=== PATIENT | female | born 1940 | race Asian ===

== ENCOUNTER 2018-11-11 15:51 | Emergency (ER) | payer OTHER ==
[2018-11-11 16:03] VITALS: BP 198/88; PULSE 83; TEMP 98.5; BMI 20.2
--- NOTE | 2018-11-11 16:54 | PDOC ---
History of Present Illness - General Chief Complaint: Blood Pressure Problem Stated Complaint: Blood Pressure Problem Time Seen by Provider: 11/11/18 16:04 History Source: Patient Exam Limitations: No Limitations - History of Present Illness Initial Comments: 11/11/18 16:49 Patient is a 77F with history of chronic pancreatitis, DM (on metformin), HTN here today complaining of high blood pressure and palpitations that started this afternoon while at work. Patient states that she became concerned that something was wrong so she took her own blood pressure. Denies chest pain, shortness of breath, fever, chills, nausea, vomiting. Denies leg swelling, history of pe, recent travel. Denies abdominal pain, dysuria. Patient reports feeling thirsty. Past History - Past Medical History Allergies/Adverse Reactions: Allergies Allergy/AdvReac Type Severity Reaction Status Date / Time Sulfa (Sulfonamide Allergy Rash Verified 12/23/13 08:04 Antibiotics) Home Medications: Ambulatory Orders Levothyroxine [Synthroid -] 25 mcg PO DAILY 10/07/13 metFORMIN HCL [Glucophage -] 500 mg PO BID 10/07/13 COPD: No Diabetes: Yes HTN: Yes Hypercholesterolemia: Yes Thyroid Disease: Yes (HYPO) - Suicide/Smoking/Psychosocial Hx Smoking History: Never smoked Have you smoked in the past 12 months: No Hx Alcohol Use: No Drug/Substance Use Hx: No Substance Use Type: None Review of Systems - Review of Systems Comments:: 11/11/18 16:53 GENERAL/CONSTITUTIONAL: No fever or chills. No weakness. HEAD, EYES, EARS, NOSE AND THROAT: No change in vision. No sore throat. CARDIOVASCULAR: No chest pain or shortness of breath +palpitations RESPIRATORY: No cough, wheezing, or hemoptysis. GASTROINTESTINAL: No nausea, vomiting, diarrhea or constipation. GENITOURINARY: No dysuria, frequency, or change in urination. MUSCULOSKELETAL: No joint or muscle swelling or pain. No neck or back pain. SKIN: No rash NEUROLOGIC: No headache, vertigo, loss of consciousness, or change in strength/ sensation. ENDOCRINE: +increased thirst. No abnormal weight change HEMATOLOGIC/LYMPHATIC: No anemia, easy bleeding, or history of blood clots. ALLERGIC/IMMUNOLOGIC: No hives or skin allergy. *Physical Exam - Vital Signs Last Vital Signs Temp Pulse Resp BP Pulse Ox 98.5 F 83 16 198/88 H 100 11/11/18 16:02 11/11/18 16:02 11/11/18 16:02 11/11/18 16:02 11/11/18 16:02 - Physical Exam Comments: 11/11/18 16:54 GENERAL: Awake, alert, and fully oriented, in no acute distress HEAD: No signs of trauma, normocephalic, atraumatic EYES: PERRLA, EOMI, sclera anicteric, conjunctiva clear ENT: Auricles normal inspection, hearing grossly normal, nares patent, oropharynx clear without exudates. Moist mucosa NECK: Normal ROM, supple, no lymphadenopathy, JVD, or masses LUNGS: No distress, speaks full sentences, clear to auscultation bilaterally HEART: Regular rate and rhythm, normal S1 and S2, no murmurs, rubs or gallops, peripheral pulses normal and equal bilaterally. ABDOMEN: Soft, nontender, normoactive bowel sounds. No guarding, no rebound. No masses EXTREMITIES: Normal inspection, Normal range of motion, no edema. No clubbing or cyanosis. NEUROLOGICAL: Cranial nerves II through XII grossly intact. Normal speech, no focal sensorimotor deficits SKIN: Warm, Dry, normal turgor, no rashes or lesions noted. Moderate Sedation - Procedure Monitoring Vital Signs: Procedure Monitoring Vital Signs Temperature 98.5 F 11/11/18 16:02 Pulse Rate 83 11/11/18 16:02 Respiratory Rate 16 11/11/18 16:02 Blood Pressure 198/88 H 11/11/18 16:02 O2 Sat by Pulse Oximetry (%) 100 11/11/18 16:02 ED Treatment Course - LABORATORY CBC & Chemistry Diagram: 11/11/18 16:30 11/11/18 16:30 - RADIOLOGY Radiology Studies Ordered: Category Date Time Status CHEST X-RAY PORTABLE* [RAD] Stat Radiology 11/11/18 16:22 Ordered Medical Decision Making - Medical Decision Making 11/11/18 16:54 Patient is a 77F with history of HTN, DM, chronic pancreatitis here today with palpitations and HTN. Initial BP 198/88. Repeat 213/92 in R, 196/86 in L. Patient has no chest pain, headache, shortness of breath at this time, will not emergently lower BP. EKG shows NSR with rate of 83. No st elevations/depressions. Normal axis. Normal intervals. No significant t wave abnormalities. 11/11/18 17:33 Repeat BP 160/78. CBC, CMP normal. Trop undetectable. CXR clear. Patient has appropriate follow up already arranged with cardiology. Will discharge home with return precautions. 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 Please return if you have any new, worsening or concerning symptoms, especially fever, chest pain and shortness of breath. - Post Discharge Activity
[2018-11-11 16:58] LABS: BASO % 0.4 % (0-2.0); EOS % 3.3 % (0-4.5); HEMATOCRIT 35.6 % (32.4-45.2); HEMOGLOBIN 12.2 GM/dL (10.7-15.3); LYMPH % 30.4 % (8-40); MCH 30.9 pg (25.7-33.7); MCHC 34.4 g/dl (32.0-36.0); MEAN CELL VOLUME 89.8 fl (80-96); MEAN PLT VOLUME 10.9 fl (7.5-11.1); MONO % 6.8 % (3.8-10.2); NEUT % 59.1 % (42.8-82.8); PLATELET COUNT 254 K/MM3 (134-434); RBC 3.97 M/mm3 (3.60-5.2); RDW 13.9 % (11.6-15.6); WHITE BLOOD COUNT 8.8 K/mm3 (4.0-10.0)
[2018-11-11 17:11] LABS: ALBUMIN 4.1 g/dl (3.4-5.0); ALK PHOS 80 U/L (45-117); ANION GAP 7 MMOL/L (8-16); BILIRUBIN,TOTAL 0.4 mg/dL (0.2-1); BLOOD UREA NITROGEN 13 mg/dL (7-18); CALCIUM 9.3 mg/dL (8.5-10.1); CHLORIDE 102 mmol/L (98-107); CO2 30 mmol/L (21-32); CREATININE 0.9 mg/dL (0.55-1.3); GLUCOSE,RANDOM 116 mg/dL (74-106); MAGNESIUM 2.3 mg/dL (1.8-2.4); POTASSIUM 4.4 mmol/L (3.5-5.1); SGOT/AST 23 U/L (15-37); SGPT/ALT 25 U/L (13-61); SODIUM 139 mmol/L (136-145); TOT PROT 7.8 g/dl (6.4-8.2)
--- NOTE | 2018-11-11 17:11 | PDOC ---
Attending Attestation - Resident Resident Name: Jose Ny - ED Attending Attestation I have performed the following: I have examined & evaluated the patient, The case was reviewed & discussed with the resident, I agree w/resident's findings & plan, Exceptions are as noted - HPI HPI: 11/11/18 17:05 The patient is a 77-year-old female, with a past medical history of HTN, DM (on Metformin), who presents to the ED with palpitations and high blood pressure. Pt notes her baseline BP is usually 140/80. Pt states that she felt her heart beating and measured her BP to be 190/80. Pt denies CP/SOB. Denies ZUNIGA/N/V. Pt does endorse increased thirst but denies any urinary frequency. Did not check her sugar today. - Physicial Exam PE: 11/11/18 17:09 "GENERAL: Awake, alert, and fully oriented, in no acute distress. HEAD: No signs of trauma EYES: PERRLA, EOMI, sclera anicteric, conjunctiva clear ENT: Auricles normal inspection, hearing grossly normal, nares patent, oropharynx clear without exudates. Moist mucosa NECK: Nontender, no stepoffs, Normal ROM, supple, no lymphadenopathy, JVD, or masses LUNGS: Breath sounds equal, clear to auscultation bilaterally. No wheezes, and no crackles HEART: Regular rate and rhythm, normal S1 and S2, no murmurs, rubs or gallops ABDOMEN: Soft, nontender, normoactive bowel sounds. No guarding, no rebound. No masses EXTREMITIES: Normal range of motion, no edema. No clubbing or cyanosis. No cords, erythema, or tenderness NEUROLOGICAL: Cranial nerves II through XII intact. 5/5 strength and sensation in all extremities, Normal speech, normal gait, normal cerebellar function SKIN: Warm, Dry, normal turgor, no rashes or lesions noted. - Medical Decision Making 11/11/18 17:10 77 F with elevated BP, palpitations, and increased thirst. Pt with normal EKG. No CP/SOB but given palpitations will send bloodwork to r/o ACS or other end organ damage. Also check for hyperglycemia given h/o DM. - Labs, trop 11/11/18 17:34 Labs wnl Repeat BP 160/80 in both arms without intervention Pt reassessed - has no complaints at this time. 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 Pt is well appearing, with normal vitals. Clinically stable for DC at this time. I discussed the physical exam findings, ancillary test results and final diagnoses with the patient. I answered all of the patient's questions. The patient was satisfied with the care received and felt comfortable with the discharge plan and treatment plan. The patient agrees to follow up with the primary care physician within 24-72 hours.
[2018-11-11 17:19] LABS: INR 0.92 (0.83-1.09); PROTHROMBIN TIME (PATIENT) 10.9 SEC (9.7-13.0)
--- NOTE | 2018-11-13 02:30 | EKG ---
Test Reason : Blood Pressure : / mmHG Vent. Rate : 083 BPM Atrial Rate : 083 BPM P-R Int : 122 ms QRS Dur : 076 ms QT Int : 354 ms P-R-T Axes : 063 000 001 degrees QTc Int : 415 ms POOR DATA QUALITY, INTERPRETATION MAY BE ADVERSELY AFFECTED NORMAL SINUS RHYTHM NONSPECIFIC ST AND T WAVE ABNORMALITY ABNORMAL ECG WHEN COMPARED WITH ECG OF 15-DEC-2013 09:23, NO SIGNIFICANT CHANGE WAS FOUND Confirmed by ALINE MARI MD ([id number]) on 11/13/2018 2:29:41 AM Referred By: Confirmed By:ALINE MARI MD
== END 2018-11-11 17:44 | disposition home or self-care (01) ==
LOC: JER 15:51
DX: I10 Essential (primary) hypertension (principal); E78.00 Pure hypercholesterolemia, unspecified; E11.9 Type 2 diabetes mellitus without complications; Z79.84 Long term (current) use of oral hypoglycemic drugs; E03.9 Hypothyroidism, unspecified
CPT/HCPCS: 36415; 71045-TC-FY; 80053; 82550; 83735; 84484; 85025; 85610; 93005; 93010; 99282-25